=== PATIENT | female | born 1985 | race Hispanic/Latino ===

== ENCOUNTER 2018-04-03 11:04 | Emergency (ER) | payer OTHER ==
[~2018-04-03 11:04] MED LIST: ACET1TAB12 PO; FERR325T22 PO; IBUP-2077 PO
== END 2018-04-03 12:22 | disposition home or self-care (01) ==
LOC: EDH 11:04
DX: S39.012A Strain of muscle, fascia and tendon of lower back, initial encounter (principal); X58.XXXA Exposure to other specified factors, initial encounter; Y93.89 Activity, other specified; Y92.89 Other specified places as the place of occurrence of the external cause; Y99.8 Other external cause status
CPT/HCPCS: 99281

== ENCOUNTER 2019-05-21 07:39 | Inpatient (IN) | payer OTHER ==
[~2019-05-21] VITALS: Ht 165.1 cm; Wt 92.1 kg
[2019-05-21 08:17] LABS: BASOPHILS % (AUTO) 0.9 % (0.0-5.0); EOSINOPHILS % (AUTO) 2.4 % (0.0-8.0); HEMATOCRIT 22.8 % (36-48); MEAN CORPUSCULAR HEMOGLOBIN 14.5 pg (27.0-33.0); MEAN CORPUSCULAR HGB CONC 23.7 g/dL (32.0-36.0); MEAN CORPUSCULAR VOLUME 61.1 fL (79-99); MONOCYTES % (AUTO) 9.6 % (3.0-13.0); NEUTROPHILS % (AUTO) 55.8 % (40.0-77.0); PLATELET COUNT (AUTO) 299 K/uL (130-400); RED BLOOD CELL COUNT(AUTO) 3.73 MIL/uL (4.00-5.50); RED CELL DISTRIBUTION WIDTH 21.5 % (11.0-15.5); WHITE BLOOD COUNT (AUTO) 3.3 K/uL (4.8-10.8)
[2019-05-21] MEDS ORDERED: METHYLPREDNISOLONE SOD SUCC 40MG/ML 1ML ONE (08:22)
[2019-05-21 08:24] LABS: CREATININE 0.7 mg/dL (0.5-1.5); POTASSIUM 3.7 mmol/L (3.5-5.1)
[2019-05-21 08:29] LABS: ALBUMIN 3.7 g/dL (3.5-5.0); BILIRUBIN,TOTAL 0.3 mg/dL (0.2-1.0); TOTAL PROTEIN, SERUM 6.8 g/dL (6.0-8.3)
[2019-05-21] MEDS: METHYLPREDNISOLONE SOD SUCC 125MG/2ML VIAL IVP SCH ×2 (08:30→17:06)
[2019-05-21] MEDS ORDERED: HYDROMORPHONE HCL 0.5 MG/0.5 ML ML IVP PRN (08:30)
[2019-05-21] MEDS ORDERED: ZOLPIDEM TARTRATE 5 MG TAB PO PRN (08:30)
[2019-05-21] MEDS ORDERED: GUAIFENESIN-DM 200/20 MG 10 ML PO PRN (08:30)
[2019-05-21] MEDS ORDERED: NITROGLYCERIN 0.4 MG SL TAB SL PRN (08:30)
[2019-05-21] MEDS ORDERED: DIPHENHYDRAMINE HCL 25 MG CAPSULE PO PRN (08:30)
[2019-05-21] MEDS ORDERED: MAG HYDROX/AL HYDROX/SIMETH ES 30 ML SUSP UDCUP PO PRN (08:30)
[2019-05-21] MEDS ORDERED: ACETAMINOPHEN 325 MG TAB PO PRN ×2 (08:30)
[2019-05-21] MEDS ORDERED: ONDANSETRON HCL 4 MG/2 ML VIAL IVP PRN ×2 (08:30→10:30)
[2019-05-21] MEDS: ENOXAPARIN SODIUM 40 MG/0.4 ML SYRINGE SQ SCH (09:00)
[2019-05-21] MEDS ORDERED: HYDROMORPHONE 1 MG/1 ML AMP ONE (09:34)
[2019-05-21 10:02] LABS: ERYTHROCYTE SEDIMENTATION RATE 6 MM/HR (0-20)
[2019-05-21] MEDS: IRON SUCROSE COMPLEX 200 MG in SODIUM CHLORIDE 0.9% 250 ML IV SCH (10:14)
[2019-05-21] MEDS ORDERED: COMPOUND IV MISC 1 EACH IVSOLN MISC PRN (10:30)
[2019-05-21 13:23] LABS: HCG,QUAL RESULT NEGATIVE (NEGATIVE)
[2019-05-21 13:24] LABS: APPEARANCE,URINE Clear (CLEAR); BILIRUBIN,URINE Negative (NEGATIVE); COLOR,URINE Yellow (YELLOW); GLUCOSE, URINE (UA) Negative (NEGATIVE); KETONES,URINE Negative (NEGATIVE); LEUKOCYTE ESTERASE ,URINE Negative (NEGATIVE); NITRATE,URINE Negative (NEGATIVE); OCCULT BLOOD,URINE Moderate (NEGATIVE); PROTEIN,URINE Negative (NEGATIVE)
[2019-05-21 13:52] LABS: BACTERIA,URINE Few /HPF (None Seen); RBC,URINE 0-1 /HPF (0-1); SQUAMOUS EPITHELIAL CELL,UR 0-2 /HPF (0-2); WBC,URINE 0-1 /HPF (0-1)
[2019-05-21] MEDS ORDERED: DEXAMETHASONE SOD PHOSPHATE 4 MG/ML 1ML VIAL ONE (14:29)
--- NOTE | 2019-05-21 15:30 | NUR ---
REPORT/RECEIVED PT RECEIVED REPORT FROM [facility] RN/ER REGARDING PT. PER [facility]- SPOKE TO DR GOLDSMITH ABOUT POSSIBLE TRANSFUSION FOR HGB OF 5.4. PER DR GOLDSMITH- PT CHRONIC ANEMIC AND IS ASYMPTOMATIC THEREFORE WILL NOT NEED UNIT OF BLOOD. UPON RECEIVING PT ASYMPTOMATIC. ORDERS RECEIVED FROM ER FOR VENOFER DAILY AND PROTONIX
--- NOTE | 2019-05-21 16:40 | NUR ---
Initial Assessment SW met with patient to complete assessment. Patient lives with spouse and their 14 yr old daughter and 5 year old son. No home services or DME. 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 Patient also drives. PCP is Dr. Calix. Pharmacy is [facility] located in [place]. DCP is home. Addendum: 05/21/19 at 1643 by CASS REZA SS Amended: Links added.
[2019-05-21] MEDS: HYDROMORPHONE 1 MG/1 ML AMP IVP PRN ×2 (17:07→22:00)
[2019-05-21 18:01] VITALS: BP 121/94
[2019-05-21 19:32] VITALS: BP 118/62
[2019-05-21] MEDS: GABAPENTIN 300 MG CAPSULE PO SCH (20:16)
[2019-05-21 23:35] VITALS: BP 116/70
[2019-05-22] MEDS: DEXAMETHASONE SOD PHOSPHATE 4 MG/ML 1ML VIAL IVP SCH ×5 (00:36→23:11)
[2019-05-22] MEDS: HYDROMORPHONE 1 MG/1 ML AMP IVP PRN ×6 (01:32→23:12)
[2019-05-22 04:20] VITALS: BP 108/54
--- NOTE | 2019-05-22 06:00 | NUR ---
Critical H and H. consistent with previous results. is aware. Will monitor closely
[2019-05-22 06:20] LABS: BASOPHILS % (AUTO) 0.1 % (0.0-5.0); HEMATOCRIT 24.6 % (36-48); LYMPHOCYTES % (AUTO) 6.9 % (21.0-51.0); MEAN CORPUSCULAR HEMOGLOBIN 14.4 pg (27.0-33.0); MEAN CORPUSCULAR HGB CONC 23.6 g/dL (32.0-36.0); MEAN CORPUSCULAR VOLUME 60.9 fL (79-99); MONOCYTES % (AUTO) 4.7 % (3.0-13.0); NEUTROPHILS % (AUTO) 87.8 % (40.0-77.0); PLATELET COUNT (AUTO) 379 K/uL (130-400); RED BLOOD CELL COUNT(AUTO) 4.04 MIL/uL (4.00-5.50); RED CELL DISTRIBUTION WIDTH 21.5 % (11.0-15.5); WHITE BLOOD COUNT (AUTO) 7.8 K/uL (4.8-10.8)
[2019-05-22 06:37] LABS: ALBUMIN 3.7 g/dL (3.5-5.0); BILIRUBIN,TOTAL 0.4 mg/dL (0.2-1.0); CREATININE 0.7 mg/dL (0.5-1.5); POTASSIUM 4.4 mmol/L (3.5-5.1); TOTAL PROTEIN, SERUM 7.5 g/dL (6.0-8.3)
[2019-05-22 07:30] VITALS: BP 119/58
[2019-05-22] MEDS: PANTOPRAZOLE SODIUM 40 MG TABLET.DR PO SCH (09:20)
[2019-05-22] MEDS: ENOXAPARIN SODIUM 40 MG/0.4 ML SYRINGE SQ SCH (09:24)
[2019-05-22 11:00] VITALS: BP 115/64
[2019-05-22] MEDS: IRON SUCROSE COMPLEX 200 MG in SODIUM CHLORIDE 0.9% 250 ML IV SCH (12:34)
[2019-05-22 16:00] VITALS: BP 123/59
--- NOTE | 2019-05-22 16:30 | NUR ---
MET W PT AND STEFAN DISCUSSED PT'S SITUATION- BAD BACK PAIN 2/2 TO FALL. PT ALSO VERY ANEMIC, HGB 5.8; DISUSSED NADIR FOR MONITORING AND IMPROVING ANEMIA, DISCUSSED STRATEGEIS FOR LIVING W THE SIDE EFFECTS OF ANEMIA CM TO FOLLOW Addendum: 05/23/19 at 1733 by XIMENA WHITLOCK RN CM Amended: Links added.
[2019-05-22 19:25] VITALS: BP 103/57
[2019-05-22] MEDS: GABAPENTIN 300 MG CAPSULE PO SCH (20:09)
[2019-05-22 23:42] VITALS: BP 112/57
[2019-05-23 03:40] VITALS: BP 110/51
[2019-05-23] MEDS: DEXAMETHASONE SOD PHOSPHATE 4 MG/ML 1ML VIAL IVP SCH ×4 (06:12→23:53)
[2019-05-23] MEDS: HYDROMORPHONE 1 MG/1 ML AMP IVP PRN (06:13)
[2019-05-23] MEDS ORDERED: HYDROMORPHONE HCL 0.5 MG/0.5 ML ML ONE (09:30)
[2019-05-23] MEDS: ENOXAPARIN SODIUM 40 MG/0.4 ML SYRINGE SQ SCH (09:34)
[2019-05-23] MEDS: PANTOPRAZOLE SODIUM 40 MG TABLET.DR PO SCH (09:34)
[2019-05-23] MEDS: IRON SUCROSE COMPLEX 200 MG in SODIUM CHLORIDE 0.9% 250 ML IV SCH (10:43)
[2019-05-23 11:00] VITALS: BP 116/63
[2019-05-23] MEDS: LACTULOSE 20 GM/30 ML UDCUP PO PRN ×2 (14:03→20:11)
[2019-05-23] MEDS: HYDROMORPHONE HCL 0.5 MG/0.5 ML ML IVP PRN ×3 (14:03→21:21)
[2019-05-23 16:00] VITALS: BP 105/62
[2019-05-23 19:40] VITALS: BP 124/70
[2019-05-23] MEDS: NAPROXEN 500 MG TABLET PO SCH (20:09)
[2019-05-23] MEDS: CYCLOBENZAPRINE HCL 10 MG TABLET PO SCH (20:09)
[2019-05-23] MEDS: GABAPENTIN 300 MG CAPSULE PO SCH (20:09)
[2019-05-24 00:39] VITALS: BP 112/65
[2019-05-24 03:40] VITALS: BP 104/61
[2019-05-24] MEDS: HYDROMORPHONE HCL 0.5 MG/0.5 ML ML IVP PRN ×2 (03:54→08:05)
[2019-05-24] MEDS: DEXAMETHASONE SOD PHOSPHATE 4 MG/ML 1ML VIAL IVP SCH ×2 (05:07→12:00)
[2019-05-24] MEDS ORDERED: PEG 3350/NA SULF,BICARB,CL/KCL 4000 ML SOLN PO SCH (07:00)
[2019-05-24] MEDS: PANTOPRAZOLE SODIUM 40 MG TABLET.DR PO SCH (08:03)
[2019-05-24] MEDS: CYCLOBENZAPRINE HCL 10 MG TABLET PO SCH (08:03)
[2019-05-24] MEDS: ENOXAPARIN SODIUM 40 MG/0.4 ML SYRINGE SQ SCH (08:04)
[2019-05-24 08:54] VITALS: BP 110/59
[2019-05-24] MEDS: NAPROXEN 500 MG TABLET PO SCH (09:00)
--- NOTE | 2019-05-24 10:05 | NUR ---
CHART REVIEWED NOTE MADE OF NSAIDS, STEROIDS, NOTE MADE OF LOW/CRITICAL H/H. DISCUSSED CUASED FOR ANMEIA, DIETARY RECOMMENDATIONS, WI PT .
[2019-05-24 11:44] VITALS: BP 113/65
--- NOTE | 2019-05-24 12:58 | NUR ---
DISCHARGE PATIENT IS TO BE DISCHARGED HOME PER DR GOLDSMITH'S ORDER. PATIENT HAD A LARGE BM TODAY AFTER RECEIVING GOLYTELY. PATIENT WAS ADMITTED WITH A HEMOGLOBIN OF 5.[address] GOLDSMITH TREATED WITH IV IRON INFUSION, LATEST HBG 5.8. PATIENT IS ASYMPTOMATIC. PATIENT WAS ALSO ADMITTED WITH LOWER BACKPAIN AND HAS BEEN CLEARED BY NEUROSURGERY FOR DISCHARGE. IV HAS BEEN REMOVED, AND PATIENT HAS CALLED A FAMILY MEMBER TO PICK HER UP FROM THE HOSPITAL.
== END 2019-05-24 13:30 | disposition home or self-care (01) | DRG 552 ==
LOC: EDH 07:39 → EDHIP 07:49 → OBSVTOIN 07:49 → 4DH 16:35
PROVIDERS: ADMIT Internal Medicine; ATTEND Internal Medicine
DX: M54.16 Radiculopathy, lumbar region (principal); D50.9 Iron deficiency anemia, unspecified; M54.9 Dorsalgia, unspecified; G89.29 Other chronic pain; E66.3 Overweight; I10 Essential (primary) hypertension; J44.9 Chronic obstructive pulmonary disease, unspecified; W01.0XXA Fall on same level from slipping, tripping and stumbling without subsequent striking against object, initial encounter; Z68.33 Body mass index [BMI] 33.0-33.9, adult; Y93.89 Activity, other specified; Y92.89 Other specified places as the place of occurrence of the external cause; Y99.8 Other external cause status
CPT/HCPCS: 36415; 72148; 80053; 81001; 81025; 85025; 85651; C9113; G0378; J1100; J1170; J1650; J1756; J2920; J2930; J7030

== ENCOUNTER → 2019-06-20 | Outpatient (CLI) | payer OTHER ==
[2019-06-20 10:05] LABS: BASOPHILS % (AUTO) 0.9 % (0.0-5.0); EOSINOPHILS % (AUTO) 18.3 % (0.0-8.0); HEMATOCRIT 29.3 % (36-48); LYMPHOCYTES % (AUTO) 33.8 % (21.0-51.0); MEAN CORPUSCULAR HGB CONC 25.3 g/dL (32.0-36.0); MEAN CORPUSCULAR VOLUME 71.3 fL (79-99); MONOCYTES % (AUTO) 5.3 % (3.0-13.0); NEUTROPHILS % (AUTO) 41.7 % (40.0-77.0); PLATELET COUNT (AUTO) 268 K/uL (130-400); RED BLOOD CELL COUNT(AUTO) 4.11 MIL/uL (4.00-5.50); RED CELL DISTRIBUTION WIDTH 26.8 % (11.0-15.5); WHITE BLOOD COUNT (AUTO) 4.3 K/uL (4.8-10.8)
[2019-06-20 10:48] LABS: ALBUMIN 3.7 g/dL (3.5-5.0); BILIRUBIN,TOTAL 0.2 mg/dL (0.2-1.0); CREATININE 0.7 mg/dL (0.5-1.5); POTASSIUM 4.6 mmol/L (3.5-5.1); TOTAL PROTEIN, SERUM 7.2 g/dL (6.0-8.3)
== END | disposition home or self-care (01) ==
LOC: RAH 09:32
PROVIDERS: ATTEND Internal Medicine
DX: I10 Essential (primary) hypertension (principal); D51.9 Vitamin B12 deficiency anemia, unspecified
CPT/HCPCS: 36415; 80053; 82607; 85025

== ENCOUNTER → 2019-06-28 | Outpatient (CLI) | payer OTHER ==
[~2019-06-28] MED LIST changes: +DULO60CA64 PO; +HYDR-4381 PO
== END | disposition home or self-care (01) ==
LOC: RAH 10:07
PROVIDERS: ATTEND Internal Medicine
DX: N83.201 Unspecified ovarian cyst, right side (principal)
CPT/HCPCS: 74176

== ENCOUNTER 2019-07-04 15:19 | Inpatient (IN) | payer OTHER ==
[~2019-07-04] VITALS: Ht 167.6 cm; Wt 93.0 kg
[~2019-07-04 15:19] MED LIST changes: -DULO60CA64 PO; -HYDR-4381 PO
[2019-07-04 16:30] LABS: CREATININE 0.8 mg/dL (0.5-1.5); POTASSIUM 4.1 mmol/L (3.5-5.1)
[2019-07-04 16:31] LABS: BASOPHILS % (AUTO) 0.3 % (0.0-5.0); EOSINOPHILS % (AUTO) 14.6 % (0.0-8.0); HEMATOCRIT 26.2 % (36-48); LYMPHOCYTES % (AUTO) 20.8 % (21.0-51.0); MEAN CORPUSCULAR HEMOGLOBIN 18.6 pg (27.0-33.0); MEAN CORPUSCULAR HGB CONC 26.7 g/dL (32.0-36.0); MEAN CORPUSCULAR VOLUME 69.7 fL (79-99); MONOCYTES % (AUTO) 5.4 % (3.0-13.0); NEUTROPHILS % (AUTO) 58.7 % (40.0-77.0); PLATELET COUNT (AUTO) 268 K/uL (130-400); RED BLOOD CELL COUNT(AUTO) 3.76 MIL/uL (4.00-5.50); RED CELL DISTRIBUTION WIDTH 24.7 % (11.0-15.5); WHITE BLOOD COUNT (AUTO) 6.1 K/uL (4.8-10.8)
[2019-07-04 16:35] LABS: ALBUMIN 3.5 g/dL (3.5-5.0); BILIRUBIN,TOTAL 0.1 mg/dL (0.2-1.0); TOTAL PROTEIN, SERUM 6.8 g/dL (6.0-8.3)
[2019-07-04 17:12] VITALS: BP 113/65
[2019-07-04] MEDS ORDERED: ACETAMINOPHEN 325 MG TAB PO PRN (17:15)
[2019-07-04] MEDS ORDERED: CLONIDINE HCL 0.1 MG TABLET PO PRN (17:15)
[2019-07-04] MEDS ORDERED: LACTULOSE 20 GM/30 ML UDCUP PO PRN (17:15)
[2019-07-04] MEDS ORDERED: SODIUM CHLORIDE 0.9% 10 ML VIAL IVP SCH (17:15)
[2019-07-04] MEDS ORDERED: ONDANSETRON HCL 4 MG/2 ML VIAL IVP PRN (17:15)
[2019-07-04] MEDS ORDERED: IRON SUCROSE COMPLEX 200 MG in SODIUM CHLORIDE 0.9% 50 ML IV SCH (17:30)
[2019-07-04] MEDS ORDERED: COMPOUND IV MISC 1 EACH IVSOLN MISC PRN (17:30)
[2019-07-04 17:37] LABS: ERYTHROCYTE SEDIMENTATION RATE 8 MM/HR (0-20)
[2019-07-04] MEDS: HYDROMORPHONE HCL 0.5 MG/0.5 ML ML IVP PRN ×2 (17:49→21:19)
[2019-07-04 19:35] VITALS: BP 116/72
--- NOTE | 2019-07-04 20:09 | NUR ---
CALLED ANSWERING SERVICE FOR DR ODOM FOR A CONSULT. PENDING CALL BACK FROM DR ODOM.
--- NOTE | 2019-07-04 20:34 | NUR ---
DR ODOM CALLED BACK SPOKE WITH STEFAN FAM REGARDING CONSULT.
[2019-07-04] MEDS: METHYLPREDNISOLONE SOD SUCC 125MG/2ML VIAL IVP SCH (21:09)
[2019-07-04] MEDS ORDERED: DULO60CA64 PO (23:14)
[2019-07-04] MEDS ORDERED: HYDR-4381 PO (23:14)
[2019-07-05] VITALS (7 sets, daily range): BP systolic 108–120; BP diastolic 60–70
[2019-07-05] MEDS: HYDROMORPHONE HCL 0.5 MG/0.5 ML ML IVP PRN ×6 (00:24→23:15)
[2019-07-05] MEDS ORDERED: ZOLPIDEM TARTRATE 5 MG TAB PO PRN (06:30)
[2019-07-05] MEDS ORDERED: PHARMACY COMMUNICATION MISC SCH (06:45)
[2019-07-05 08:22] LABS: HEMATOCRIT 29.5 % (36-48)
[2019-07-05] MEDS: METHYLPREDNISOLONE SOD SUCC 125MG/2ML VIAL IVP SCH ×2 (08:47→20:28)
[2019-07-05] MEDS: IRON SUCROSE COMPLEX 200 MG in SODIUM CHLORIDE 0.9% 50 ML IV SCH (08:47)
[2019-07-05 12:20] LABS: APPEARANCE,URINE Cloudy (CLEAR); BILIRUBIN,URINE Negative (NEGATIVE); COLOR,URINE Yellow (YELLOW); GLUCOSE, URINE (UA) Negative (NEGATIVE); KETONES,URINE Negative (NEGATIVE); LEUKOCYTE ESTERASE ,URINE Moderate (NEGATIVE); NITRATE,URINE Positive (NEGATIVE); OCCULT BLOOD,URINE Negative (NEGATIVE); PH,URINE 6.5 (5.0-8.0); PROTEIN,URINE Negative (NEGATIVE)
[2019-07-05 12:30] LABS: BACTERIA,URINE Many /HPF (None Seen); RBC,URINE 0-1 /HPF (0-1); SQUAMOUS EPITHELIAL CELL,UR Rare /HPF (0-2)
--- NOTE | 2019-07-05 15:02 | NUR ---
INITIAL Patient lives with spouse and children. Emergency contact is mother, Lorraine Russ, [phone]. No home services or DME. Patient is able to complete ADL's independently but has not been driving recently. 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 PCP is Dr. Calix. Pharmacy is [facility] or [facility] located in [place]. DCP is home. Addendum: 07/05/19 at 1505 by CASS REZA SS Amended: Links added.
--- NOTE | 2019-07-05 15:08 | NUR ---
DR ODOM PAGED DR ODOM REGARDING CONSULT. PENDING CB
--- NOTE | 2019-07-05 15:32 | NUR ---
DR ODOM SPOKE TO RADHA AT DR ODOM OFFICE. SHE STATED HE IS NOT DOING ANY "ELECTIVE SURGERIES" BUT WILL PAGE HIM AGAIN
[2019-07-05] MEDS: CEFTRIAXONE SODIUM 1 GM IVP SCH (18:30)
[2019-07-05] MEDS ORDERED: CEFTRIAXONE SODIUM 1 GM ONE (18:34)
--- NOTE | 2019-07-05 19:03 | NUR ---
BLADDER SCAN DONE PRE VOID: [id number] POST VOID: [id number]
--- NOTE | 2019-07-05 19:45 | NUR ---
patient reports random episodes of urinary incontinence. Addendum: 07/06/19 at 0054 by CASS RAMIREZ RN RN Amended: Links added.
[2019-07-05] MEDS: GABAPENTIN 300 MG CAPSULE PO SCH (20:27)
[2019-07-05] MEDS: DIAZEPAM 2 MG TAB PO SCH (20:27)
[2019-07-06 04:30] VITALS: BP 107/63
[2019-07-06] MEDS: HYDROMORPHONE HCL 0.5 MG/0.5 ML ML IVP PRN ×3 (05:10→12:47)
[2019-07-06 06:06] LABS: BASOPHILS % (AUTO) 0.1 % (0.0-5.0); EOSINOPHILS % (AUTO) 2.1 % (0.0-8.0); HEMATOCRIT 27.4 % (36-48); LYMPHOCYTES % (AUTO) 8.1 % (21.0-51.0); MEAN CORPUSCULAR HEMOGLOBIN 18.7 pg (27.0-33.0); MEAN CORPUSCULAR VOLUME 69.4 fL (79-99); MONOCYTES % (AUTO) 2.7 % (3.0-13.0); NEUTROPHILS % (AUTO) 86.7 % (40.0-77.0); PLATELET COUNT (AUTO) 268 K/uL (130-400); RED BLOOD CELL COUNT(AUTO) 3.95 MIL/uL (4.00-5.50); RED CELL DISTRIBUTION WIDTH 24.3 % (11.0-15.5); WHITE BLOOD COUNT (AUTO) 7.1 K/uL (4.8-10.8)
[2019-07-06 08:00] VITALS: BP 126/61
[2019-07-06] MEDS: METHYLPREDNISOLONE SOD SUCC 125MG/2ML VIAL IVP SCH (08:55)
[2019-07-06] MEDS: DIAZEPAM 2 MG TAB PO SCH ×2 (08:55→14:59)
[2019-07-06] MEDS: GABAPENTIN 300 MG CAPSULE PO SCH ×2 (08:57→14:58)
[2019-07-06] MEDS ORDERED: DULOXETINE HCL 30 MG CAP PO SCH (09:00)
--- NOTE | 2019-07-06 11:38 | NUR ---
GYNECOLOGY CONSULT Dr. Rodriguez, on-call, was paged and notified.
--- NOTE | 2019-07-06 11:52 | NUR ---
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 Rodriguez stated a 3-cm cyst is a normal finding in a pre-menopausal woman. That no further workup is needed. Patient can follow up as an outpatient if needed.
[2019-07-06 12:00] VITALS: BP 116/70
[2019-07-06] MEDS: IRON SUCROSE COMPLEX 200 MG in SODIUM CHLORIDE 0.9% 50 ML IV SCH (12:45)
[2019-07-06] MEDS: CEFTRIAXONE SODIUM 1 GM IVP SCH (14:59)
--- NOTE | 2019-07-06 15:37 | NUR ---
DR. CALIX Patient stated she needs pain medication prescription. Called Dr. Calix left message. Pending for him to call back.
[2019-07-06 15:58] VITALS: BP 114/65
== END 2019-07-06 17:03 | disposition home or self-care (01) | DRG 690 ==
LOC: EDH 15:19 → OBSVTOIN 15:59 → EDHIP 15:59 → 3DH 17:10
PROVIDERS: ADMIT Internal Medicine; ATTEND Internal Medicine
DX: N39.0 Urinary tract infection, site not specified (principal); D50.9 Iron deficiency anemia, unspecified; M54.16 Radiculopathy, lumbar region; N83.201 Unspecified ovarian cyst, right side
CPT/HCPCS: 36415; 71045; 72110; 72148; 73502; 73562; 74176; 76856; 80053; 81001; 85014; 85018; 85025; 85651; 86304; 87040; 87077; 87088; 87186; 93005; G0378; J0696; J1170; J1756; J2930

== ENCOUNTER → 2019-07-23 | Outpatient (CLI) | payer OTHER ==
[~2019-07-23] MED LIST changes: +BACL20TA PO; +DULO60CA64 PO; +FERS325 PO; +HYDR-4068 PO; +HYDR-4381 PO; +KETO10 PO
[2019-07-23 14:57] LABS: BASOPHILS % (AUTO) 0.7 % (0.0-5.0); EOSINOPHILS % (AUTO) 6.9 % (0.0-8.0); HEMATOCRIT 35.6 % (36-48); LYMPHOCYTES % (AUTO) 34.5 % (21.0-51.0); MEAN CORPUSCULAR HEMOGLOBIN 21.1 pg (27.0-33.0); MEAN CORPUSCULAR HGB CONC 27.5 g/dL (32.0-36.0); MEAN CORPUSCULAR VOLUME 76.7 fL (79-99); MONOCYTES % (AUTO) 6.3 % (3.0-13.0); NEUTROPHILS % (AUTO) 51.4 % (40.0-77.0); PLATELET COUNT (AUTO) 243 K/uL (130-400); RED BLOOD CELL COUNT(AUTO) 4.64 MIL/uL (4.00-5.50); RED CELL DISTRIBUTION WIDTH 28.1 % (11.0-15.5); WHITE BLOOD COUNT (AUTO) 5.4 K/uL (4.8-10.8)
== END | disposition home or self-care (01) ==
LOC: LAB 14:31
PROVIDERS: ATTEND Internal Medicine
DX: D50.9 Iron deficiency anemia, unspecified (principal)
CPT/HCPCS: 36415; 85025

== ENCOUNTER → 2019-09-03 | Outpatient (CLI) | payer OTHER ==
[2019-09-03 11:58] LABS: BASOPHILS % (AUTO) 0.7 % (0.0-5.0); EOSINOPHILS % (AUTO) 9.4 % (0.0-8.0); HEMATOCRIT 36.1 % (36-48); LYMPHOCYTES % (AUTO) 28.8 % (21.0-51.0); MEAN CORPUSCULAR HEMOGLOBIN 22.4 pg (27.0-33.0); MEAN CORPUSCULAR HGB CONC 28.5 g/dL (32.0-36.0); MEAN CORPUSCULAR VOLUME 78.5 fL (79-99); MONOCYTES % (AUTO) 6.7 % (3.0-13.0); NEUTROPHILS % (AUTO) 54.2 % (40.0-77.0); PLATELET COUNT (AUTO) 273 K/uL (130-400); RED CELL DISTRIBUTION WIDTH 22.4 % (11.0-15.5); WHITE BLOOD COUNT (AUTO) 5.6 K/uL (4.8-10.8)
== END | disposition home or self-care (01) ==
LOC: LAB 11:27
PROVIDERS: ATTEND Internal Medicine
DX: M17.0 Bilateral primary osteoarthritis of knee (principal); D50.9 Iron deficiency anemia, unspecified; F43.23 Adjustment disorder with mixed anxiety and depressed mood; M54.17 Radiculopathy, lumbosacral region; M54.5 Low back pain
CPT/HCPCS: 36415; 73560; 85025

== ENCOUNTER → 2019-10-03 | Outpatient (CLI) | payer OTHER | END | disposition home or self-care (01) | LOC: LAB 11:43 | PROVIDERS: ATTEND Internal Medicine | DX: R53.83 Other fatigue (principal); R55 Syncope and collapse ==

== ENCOUNTER → 2019-10-10 | Outpatient (CLI) | payer OTHER | END | disposition home or self-care (01) | LOC: RAH 11:29 | PROVIDERS: ATTEND Obstetrics & Gynecology | DX: N92.1 Excessive and frequent menstruation with irregular cycle (principal); Z90.721 Acquired absence of ovaries, unilateral | CPT/HCPCS: 76856 ==

== ENCOUNTER 2019-11-07 08:00 | Observation (INO) | payer OTHER ==
[~2019-11-07] VITALS: Ht 165.1 cm; Wt 92.9 kg
[~2019-11-07 08:00] MED LIST changes: -BACL20TA PO; -DULO60CA64 PO; -FERR325T22 PO; -FERS325 PO; -HYDR-4068 PO; -HYDR-4381 PO; -IBUP-2077 PO; -KETO10 PO
[2019-11-07 11:40] LABS: BASOPHILS % (AUTO) 0.7 % (0.0-5.0); EOSINOPHILS % (AUTO) 8.4 % (0.0-8.0); HEMATOCRIT 34.2 % (36-48); LYMPHOCYTES % (AUTO) 28.1 % (21.0-51.0); MEAN CORPUSCULAR HEMOGLOBIN 22.2 pg (27.0-33.0); MEAN CORPUSCULAR HGB CONC 28.7 g/dL (32.0-36.0); MEAN CORPUSCULAR VOLUME 77.4 fL (79-99); MONOCYTES % (AUTO) 6.2 % (3.0-13.0); NEUTROPHILS % (AUTO) 56.4 % (40.0-77.0); PLATELET COUNT (AUTO) 320 K/uL (130-400); RED BLOOD CELL COUNT(AUTO) 4.42 MIL/uL (4.00-5.50); RED CELL DISTRIBUTION WIDTH 16.3 % (11.0-15.5); WHITE BLOOD COUNT (AUTO) 5.8 K/uL (4.8-10.8)
[2019-11-11 09:29] VITALS: BP 133/78
[2019-11-11] MEDS ORDERED: FERS325 PO (12:48)
[2019-11-11] MEDS ORDERED: KETO10 PO (12:50)
[2019-11-11] MEDS ORDERED: BACL20TA PO (12:50)
[2019-11-12] VITALS (23 sets, daily range): BP systolic 97–136; BP diastolic 56–85
[2019-11-12] MEDS ORDERED: LACTATED RINGERS 1000ML 1,000 ML IV ONE (07:44)
[2019-11-12] MEDS ORDERED: HYDR-4068 PO (08:16)
[2019-11-12] MEDS ORDERED: LIDOCAINE PF 2% 5ML ABBOJECT ONE (08:58)
[2019-11-12] MEDS ORDERED: SUCCINYLCHOLINE CHLORIDE 20 MG/ML 10 ML VIAL ONE (08:58)
[2019-11-12] MEDS ORDERED: PROPOFOL 10 MG/ML 20ML VIAL IV ONE (08:58)
[2019-11-12] MEDS ORDERED: ONDANSETRON HCL 4 MG/2 ML VIAL ONE (08:58)
[2019-11-12] MEDS ORDERED: DEXAMETHASONE SOD PHOSPHATE 10MG/ML 1ML VIAL ONE (08:58)
[2019-11-12] MEDS ORDERED: GLYCOPYRROLATE 1 MG/5 ML SYRINGE ONE (08:58)
[2019-11-12] MEDS ORDERED: ROCURONIUM 10MG/1ML SYR 10 MG/ML ML ONE ×2 (08:59→11:25)
[2019-11-12] MEDS ORDERED: NEOSTIGMINE 5MG/5ML SYR IV ONE (08:59)
[2019-11-12] MEDS ORDERED: FENTANYL CITRATE PF 50 MCG/1 ML 2ML VIAL ONE ×4 (08:59→12:16)
[2019-11-12] MEDS ORDERED: MIDAZOLAM HCL 1 MG/ML 2ML VIAL ONE (08:59)
[2019-11-12] MEDS ORDERED: CEFAZOLIN SODIUM 1 GM VIAL ONE (10:52)
[2019-11-12] MEDS ORDERED: MEPERIDINE-PF 25 MG/ML SYG ONE ×2 (12:42→12:59)
[2019-11-12] MEDS ORDERED: ONDANSETRON HCL 4 MG/2 ML VIAL IVP PRN (14:15)
[2019-11-12] MEDS ORDERED: BISACODYL 10 MG SUPP.RECT RC PRN (14:15)
[2019-11-12] MEDS ORDERED: SIMETHICONE 80 MG TAB.CHEW PO PRN (14:15)
[2019-11-12] MEDS ORDERED: ACETAMINOPHEN-CODEINE 300/30MG TAB PO PRN (14:15)
[2019-11-12] MEDS ORDERED: DOCUSATE SODIUM 100 MG CAP PO PRN (14:15)
[2019-11-12] MEDS ORDERED: PROMETHAZINE HCL 25 MG/ML 1ML AMPULE IM PRN (14:15)
[2019-11-12] MEDS ORDERED: IBUPROFEN 600 MG TABLET PO PRN (14:15)
[2019-11-12] MEDS: PROMETHAZINE HCL 25 MG/ML 1ML AMPULE IM PRN ×2 (14:32→17:01)
[2019-11-12] MEDS: MEPERIDINE-PF 75 MG/ML SYG IM PRN ×3 (14:33→21:02)
[2019-11-12] MEDS: DEXTROSE 5 %-0.45 % NACL 1,000 ML IV PRN (14:47)
--- NOTE | 2019-11-12 21:03 | NUR ---
PT. ASSISTED UP TO BR, VOIDED AND HAD A LARGE SOFT BM. AND BACK IN BED WITH ASSIST.
[2019-11-13] MEDS: DEXTROSE 5 %-0.45 % NACL 1,000 ML IV PRN (00:26)
[2019-11-13 02:42] VITALS: BP 123/59
[2019-11-13] MEDS: PROMETHAZINE HCL 25 MG/ML 1ML AMPULE IM PRN (03:39)
[2019-11-13] MEDS: MEPERIDINE-PF 75 MG/ML SYG IM PRN (03:40)
[2019-11-13 07:38] VITALS: BP 139/76
[2019-11-13 08:03] LABS: HEMATOCRIT 29.8 % (36-48); MEAN CORPUSCULAR HEMOGLOBIN 22.1 pg (27.0-33.0); MEAN CORPUSCULAR HGB CONC 28.9 g/dL (32.0-36.0); MEAN CORPUSCULAR VOLUME 76.4 fL (79-99); RED BLOOD CELL COUNT(AUTO) 3.9 MIL/uL (4.00-5.50); WHITE BLOOD COUNT (AUTO) 6.8 K/uL (4.8-10.8)
--- NOTE | 2019-11-13 10:50 | NUR ---
Pt is discharged, verbal and written discharge instructions given, refer to exit care. informed of the follow up appointment, prescription given. informed to call the doctor for future concerns. Pt voiced understanding to all things discussed. Addendum: 11/13/19 at 1103 by ADRIAN PEREZ RN Amended: Links added.
--- NOTE | 2019-11-13 11:15 | NUR ---
pt is dismissed in stable condition, brought to private car via wheelchair by Lluvia Mclaughlin pcp Addendum: 11/13/19 at 1118 by ADRIAN PEREZ RN Amended: Links added.
== END 2019-11-13 11:15 | disposition home or self-care (01) ==
LOC: DAHIP 11-12 06:21 → EDSTATUS 11-12 08:00 → WSH 11-12 13:45
PROVIDERS: ADMIT Obstetrics & Gynecology; ATTEND Obstetrics & Gynecology
DX: N92.1 Excessive and frequent menstruation with irregular cycle (principal); Z20.828 Contact with and (suspected) exposure to other viral communicable diseases; R10.2 Pelvic and perineal pain; D64.9 Anemia, unspecified; N73.6 Female pelvic peritoneal adhesions (postinfective)
CPT/HCPCS: 36415 ×3; 58552; 84703; 85025; 85027; 86850 ×2; 86900 ×2; 86901 ×2; 86922; 96372 ×4; 96374; A4215 ×2; A4216; A4221; A4222; A4223 ×2; A4344; A4351; A4510; A4600; A4649 ×3; A4663; A4930; C1769 ×2; G0378 ×20; J0330; J0690; J1100; J2001; J2175 ×6; J2250; J2405 ×2; J2550 ×4; J2704; J2710; J3010 ×4; J3490; J7030 ×2; J7120 ×2; U0003

== ENCOUNTER 2020-01-23 11:50 | Emergency (ER) | payer OTHER ==
[~2020-01-23 11:50] MED LIST changes: -ACET1TAB12 PO; +BACL20TA PO; +FERS325 PO; +HYDR-4068 PO; +KETO10 PO
[2020-01-23] MEDS ORDERED: ACETAMINOPHEN EXTRA STRENGTH 500 MG TABLET ONE (12:05)
[2020-01-23 13:19] LABS: RAPID GROUP A STREP NEGATIVE (NEGATIVE)
== END 2020-01-23 14:13 | disposition home or self-care (01) ==
LOC: EDH 11:50
DX: J06.9 Acute upper respiratory infection, unspecified (principal); Z20.828 Contact with and (suspected) exposure to other viral communicable diseases; Z98.890 Other specified postprocedural states
CPT/HCPCS: 87426; 87804 ×2; 87880; 99283; U0003

== ENCOUNTER 2021-07-05 23:46 | Emergency (ER) | payer OTHER ==
[~2021-07-05] VITALS: Ht 165.1 cm; Wt 84.8 kg
[2021-07-05 23:47] VITALS: BP 124/64
[2021-07-06 00:31] LABS: HCG,QUAL RESULT NEGATIVE (NEGATIVE)
[2021-07-06 00:32] LABS: BILIRUBIN,URINE Negative (NEGATIVE); COLOR,URINE Yellow (YELLOW); GLUCOSE, URINE (UA) Negative (NEGATIVE); KETONES,URINE Negative (NEGATIVE); LEUKOCYTE ESTERASE ,URINE Trace (NEGATIVE); NITRATE,URINE Negative (NEGATIVE); OCCULT BLOOD,URINE Negative (NEGATIVE); PROTEIN,URINE Negative (NEGATIVE)
[2021-07-06 00:33] LABS: APPEARANCE,URINE SLIGHTLY CLOUDY (CLEAR)
[2021-07-06 00:43] LABS: BACTERIA,URINE Few /HPF (None Seen); RBC,URINE None Seen /HPF (0-1); SQUAMOUS EPITHELIAL CELL,UR 0-2 /HPF (0-2); WBC,URINE 0-1 /HPF (0-1)
[2021-07-06] MEDS: ORPHENADRINE CITRATE 30 MG/ML ML IM ONE (01:06)
[2021-07-06] MEDS: KETOROLAC 60 MG VIAL (30MG/ML) IM ONE (01:06)
[2021-07-06] MEDS: HYDROCODONE/ACETAMINOPHEN 5/325 MG TAB PO ONE (01:07)
[2021-07-06] MEDS ORDERED: FAMC500T8 PO (02:03)
[2021-07-06] MEDS ORDERED: IBUP-2070 PO (02:03)
[2021-07-06] MEDS ORDERED: CYCL-309 PO (02:03)
== END 2021-07-06 02:22 | disposition home or self-care (01) ==
LOC: EDH 23:46
DX: G89.29 Other chronic pain (principal); M54.50 Low back pain, unspecified; M62.830 Muscle spasm of back; B00.1 Herpesviral vesicular dermatitis; D64.9 Anemia, unspecified; Z79.899 Other long term (current) drug therapy; Z98.890 Other specified postprocedural states
CPT/HCPCS: 81001; 81025; 96372 ×2; 99284; J1885; J2360